=== PATIENT | female | born 1945 | race Hispanic/Latino ===

== ENCOUNTER 2016-12-10 16:24 | Emergency (ER) | payer OTHER ==
[2016-12-10 17:23] LABS: BASO # 0.1 K/uL (0.0-0.2); EOS # 0.1 K/uL (0.0-0.7); EOS % 1.3 % (0.0-4.0); HEMATOCRIT 42.7 % (34.0-47.0); LYMPH # 2.2 K/uL (1.0-4.3); LYMPH % 25.4 % (20.0-40.0); MEAN CELL VOLUME 84.9 fL (81.0-99.0); MEAN CORPUSCULAR HEMOGLOBIN 29.2 pg (27.0-31.0); MEAN CORPUSCULAR HGB CONC 34.4 g/dL (33.0-37.0); MEAN PLATELET VOLUME 7.9 fL (7.2-11.7); MONO # 0.7 K/uL (0.0-0.8); MONO % 8.5 % (0.0-10.0); NRBC % 0.1 % (0.0-2.0); RED CELL DISTRIBUTION WIDTH 13.5 % (11.5-14.5); WHITE BLOOD COUNT 8.6 K/uL (4.8-10.8)
[2016-12-10 17:28] LABS: CHLORIDE 90 mmol/L (98-107); POTASSIUM 3.7 mmol/L (3.6-5.2); RBC URINE 6 /hpf (0-3); SODIUM 132 mmol/L (132-148); URINE BACTERIA RARE (<OCC); URINE BILIRUBIN NEGATIVE (NEGATIVE); URINE BLOOD 1+ (NEGATIVE); URINE COLOR Yellow (YELLOW); URINE GLUCOSE (UA) NORMAL (Normal); URINE KETONE NEGATIVE (NEGATIVE); URINE LEUKOCYTE ESTERASE 1+ Leu/uL (Negative); URINE PROTEIN NEGATIVE (NEGATIVE); URINE UROBILINOGEN NORMAL mg/dL (0.2-1.0); WBC URINE 13 /hpf (0-5)
[2016-12-10 17:30] LABS: BILIRUBIN,TOTAL 0.8 mg/dL (0.2-1.3); CARBON DIOXIDE 26 mmol/L (22-30); GFR AFRICAN-AMERICAN > 60
[2016-12-10 17:31] LABS: ALB/GLOB RATIO 1.7 (1.0-2.1); ALCOHOL SERUM < 10 mg/dl (0-10); ALKALINE PHOSPHATASE 57 U/L (38-126); ALT/SGPT 30 U/L (9-52); AST/SGOT 26 U/L (14-36); BLOOD UREA NITROGEN 11 mg/dL (7-17); CALCIUM 10.3 mg/dl (8.6-10.4); GLUCOSE,RANDOM 137 mg/dL (65-105); TOTAL PROTEIN 8.6 g/dL (6.3-8.3)
--- NOTE | 2016-12-10 17:57 | RAD ---
PROCEDURE: CHEST RADIOGRAPH, 1 VIEW HISTORY: BASELINE COMPARISON: None available. FINDINGS: LUNGS: Diffuse chronic increased interstitial markings. Biapical pleural thickening with upper lobe granulomatous changes. Curvilinear opacity projecting over the lateral right upper lung zone which may represent Mach artifact. PLEURA: As above. CARDIOVASCULAR: Normal. OSSEOUS STRUCTURES: Calcific tendinopathy of the right proximal humerus. Lobulated sclerotic lesion projecting over the proximal medullary cavity of the right humerus. VISUALIZED UPPER ABDOMEN: Normal. OTHER FINDINGS: None. IMPRESSION: Curvilinear opacity projecting at the lateral aspect of the right upper lung zone which may represent Mach artifact. Correlation with PA and lateral view may be helpful to exclude subtle pneumothorax. Calcific tendinopathy of the right proximal humerus. Lobulated sclerotic lesion/density projecting over the right proximal humerus. Chronic interstitial lung markings.
--- NOTE | 2016-12-10 18:38 | C.PDOC ---
Time Seen by Provider: 12/10/16 16:38 Chief Complaint (Nursing): Psychiatric Evaluation History Per: Patient Onset/Duration Of Symptoms: Days Current Symptoms Are (Timing): Still Present Suicide/Self Injury Attempted (Context): None Modifying Factor(s): None Severity: Moderate Associated Symptoms: Anxiety, Paranoia Additional History Per: Prior Records Past Medical History Reviewed: Historical Data, Nursing Documentation, Vital Signs Vital Signs: Last Vital Signs Temp 97.8 F 12/10/16 21:15 Pulse 82 12/10/16 21:15 Resp 22 12/10/16 21:15 BP 149/74 12/10/16 21:15 Pulse Ox 97 12/10/16 23:41 - Medical History PMH: Dementia, Depression, Diabetes, HTN, Hypercholesterolemia - [facility] Procedures TETANUS TOXOID ADMINIST (02/22/13) Family History: States: Unknown Family Hx - Social History Hx Tobacco Use: Yes Hx Alcohol Use: No Hx Substance Use: No - Immunization History Hx Tetanus Toxoid Vaccination: Yes (02/22/2013) Hx Influenza Vaccination: Yes Hx Pneumococcal Vaccination: Yes Review Of Systems Except As Marked, All Systems Reviewed And Found Negative. Constitutional: Negative for: Fever, Weakness Cardiovascular: Negative for: Chest Pain Respiratory: Negative for: Shortness of Breath Gastrointestinal: Negative for: Vomiting, Abdominal Pain Musculoskeletal: Negative for: Neck Pain Neurological: Negative for: Weakness, Numbness, Seizures, Altered Mental Status Psych: Positive for: Psychosis. Negative for: Suicidal ideation Physical Exam - Physical Exam Appears: Non-toxic, No Acute Distress Skin: Normal Color, Warm, Dry, No Rash Head: Atraumatic, Normacephalic Eye(s): bilateral: PERRL, EOMI Neck: Normal ROM, Supple Cardiovascular: Rhythm Regular Respiratory: Normal Breath Sounds, No Accessory Muscle Use Gastrointestinal/Abdominal: Soft, No Tenderness Back: No CVA Tenderness Extremity: Normal ROM Neurological/Psych: Oriented x3, Normal Motor, Normal Sensation ED Course And Treatment - Laboratory Results Result Diagrams: 12/10/16 17:17 12/10/16 17:17 Lab Interpretation: No Acute Changes ECG: Interpreted By Me, Viewed By Me ECG Rhythm: Sinus Rhythm, Nonspecific Changes ECG Interpretation: No Acute Changes Rate From EC O2 Sat by Pulse Oximetry: 97 Pulse Ox Interpretation: Normal - Radiology CXR: Interpreted by Me, Viewed By Me CXR Interpretation: Yes: No Acute Disease Progress Note: Patient is medically stable for psychiatric admission. Pt will be transferred to [facility] for admission to geriatric psych. Accepted by Dr. Dejesus. Reassessment Condition: Improved Disposition Counseled Patient/Family Regarding: Studies Performed, Diagnosis - Disposition Disposition: Trans to Other Acute Care Hosp Disposition Time: 23:40 Condition: STABLE - Clinical Impression Clinical Impression: Anxiety, Psychosis
[2016-12-11 00:44] VITALS: BP 143/71; PULSE 75; RESP 19; TEMP 98.1; O2SAT 96
--- NOTE | 2016-12-11 08:02 | RAD ---
HISTORY: Psych clearance, abnormal portable cxr COMPARISON: 12/10/2016 TECHNIQUE: Chest PA and lateral FINDINGS: LUNGS: Biapical pleural thickening with upper lobe granulomatous changes. Diffuse chronic increased interstitial lung markings. Bibasilar breast and nipple shadows. PLEURA: No significant pleural effusion identified. No pneumothorax apparent. CARDIOVASCULAR: Normal. OSSEOUS STRUCTURES: Degenerative changes in the spine. VISUALIZED UPPER ABDOMEN: Normal. OTHER FINDINGS: None. IMPRESSION: Biapical pleural thickening with upper lobe granulomatous changes. Diffuse chronic increased interstitial lung markings. Bibasilar breast and nipple shadows.
--- NOTE | 2016-12-12 11:36 | CARD ---
APPROVED REPORT EKG Measurement Heart [id number] MA [id number] <Conclusion> Normal sinus rhythm Nonspecific ST abnormality Abnormal ECG
== END 2016-12-11 01:40 | disposition short-term general hospital (02) ==
LOC: C.ER 16:24
DX: F41.9 Anxiety disorder, unspecified (principal); F29 Unspecified psychosis not due to a substance or known physiological condition

== ENCOUNTER 2018-03-12 17:15 | Emergency (ER) | payer MEDICARE ==
[2018-03-12 17:15] VITALS: BMI 25.6
[2018-03-12 17:23] VITALS: RESP 18
--- NOTE | 2018-03-12 18:09 | C.PDOC ---
History Of Present Illness 72 y/o female presents to the ED complaining of discomfort and cold sensation throughout her upper back for the past 2-3 days. Otherwise she denies any cough , chest pain, SOB, congestion, fever, chills, nausea, vomiting, or diarrhea. No fall or trauma. No recent travel. Patient also reports her feet feel cold. Time Seen by Provider: 03/12/18 17:31 Chief Complaint (Nursing): Cough, Cold, Congestion History Per: Patient History/Exam Limitations: no limitations Onset/Duration Of Symptoms: Days Current Symptoms Are (Timing): Still Present Past Medical History Reviewed: Historical Data, Nursing Documentation, Vital Signs Vital Signs: Last Vital Signs Temp 98.7 F 03/12/18 18:54 Pulse 76 03/12/18 18:54 Resp 18 03/12/18 18:54 BP 146/80 03/12/18 18:54 Pulse Ox 100 03/12/18 18:54 - Medical History PMH: Alzheimer's Disease, Dementia, Depression, HTN, Hypercholesterolemia, Schizophrenia Denies: Diabetes, Hepatitis, HIV, Chronic Kidney Disease, Seizures, Sexually Transmitted Disease - [facility] Procedures GROUP PSYCHOTHERAPY (06/20/17) INDIVIDUAL PSYCHOTHERAPY, BEHAVIORAL (02/09/17) INDIVIDUAL PSYCHOTHERAPY, SUPPORTIVE (06/20/17) INTRODUCTION OF SERUM/TOX/VACCINE INTO MUSCLE, PERC APPROACH (06/20/17) MEDICATION MANAGEMENT (06/20/17) TETANUS TOXOID ADMINIST (02/22/13) Family History: States: Unknown Family Hx - Social History Hx Tobacco Use: Yes Hx Alcohol Use: No Hx Substance Use: No - Immunization History Hx Tetanus Toxoid Vaccination: Yes (02/22/2013) Hx Influenza Vaccination: Yes Hx Pneumococcal Vaccination: Yes Review Of Systems Except As Marked, All Systems Reviewed And Found Negative. Constitutional: Negative for: Fever, Chills ENT: Negative for: Nose Discharge, Nose Congestion Cardiovascular: Negative for: Chest Pain Respiratory: Negative for: Cough, Shortness of Breath Gastrointestinal: Negative for: Nausea, Vomiting, Diarrhea Musculoskeletal: Positive for: Back Pain, Other (discomfort and "cold" throughout body) Physical Exam - Physical Exam Appears: Non-toxic, No Acute Distress Skin: Normal Color, Warm, No Rash, No Cyanotic Head: Atraumatic, Normacephalic Eye(s): bilateral: Normal Inspection Ear(s): Bilateral: Normal Oral Mucosa: Moist Throat: Normal, No Erythema, No Exudate Neck: Normal ROM, Supple Chest: Symmetrical Cardiovascular: Rhythm Regular, No Murmur Respiratory: Normal Breath Sounds, No Accessory Muscle Use, No Rhonchi, No Wheezing Back: Normal Inspection, No Vertebral Tenderness, No Decreased ROM Extremity: Bilateral: Atraumatic, Normal Color And Temperature, Normal ROM Pulses: Left Radial: Normal, Right Radial: Normal Neurological/Psych: Oriented x3, Normal Speech ED Course And Treatment O2 Sat by Pulse Oximetry: 96 (RA) Pulse Ox Interpretation: Normal - Radiology CXR: Interpreted by Me, Viewed By Me CXR Interpretation: Yes: No Acute Disease Medical Decision Making Medical Decision Making: Time: 17:57 Plan: * Chest X-Ray The patient has a normal physical exam and normal vitals. CXR is negative. Results were discussed with the patient. Disposition Counseled Patient/Family Regarding: Studies Performed, Diagnosis, Need For Followup - Disposition Referrals: Ignacio Rivera MD [Staff Provider] - Disposition: HOME/ ROUTINE Disposition Time: 18:40 Condition: STABLE Additional Instructions: Follow up with the medical doctor/clinic within 1-2 days without fail. Return if worsened. Prescriptions: Acetaminophen [Tylenol] 325 mg PO Q6 PRN #30 tab PRN Reason: Pain, Mild (1-3) Ibuprofen [Motrin] 1 tab PO TID PRN #30 tab PRN Reason: Pain Loratadine [Claritin] 10 mg PO DAILY #10 tab Instructions: Upper Respiratory Infection (ED) Forms: [facility] (Finnish) - Clinical Impression Clinical Impression: Normal exam - PA / FELLM[employer] WORKER / Resident Statement MD/DO has reviewed & agrees with the documentation as recorded. - Scribe Statement The provider has reviewed the documentation as recorded by the Scribe (Francine Watson) All medical record entries made by the Scribe were at my direction and personally dictated by me. I have reviewed the chart and agree that the record accurately reflects my personal performance of the history, physical exam, medical decision making, and the department course for this patient. I have also personally directed, reviewed, and agree with the discharge instructions and disposition.
--- NOTE | 2018-03-12 18:27 | RAD ---
HISTORY: cough, cold COMPARISON: Chest radiograph dated 12/10/2016. TECHNIQUE: Chest PA and lateral FINDINGS: LUNGS: No active pulmonary disease. PLEURA: No significant pleural effusion identified. No pneumothorax apparent. CARDIOVASCULAR: Atherosclerotic aortic calcifications. Cardiomediastinal silhouette within normal limits. OSSEOUS STRUCTURES: Unchanged. VISUALIZED UPPER ABDOMEN: Normal. OTHER FINDINGS: None. IMPRESSION: No active disease.
[2018-03-12 19:01] VITALS: BP 146/80; PULSE 76; TEMP 98.7
[2018-03-12 22:46] VITALS: O2SAT 96
== END 2018-03-12 18:54 | disposition home or self-care (01) ==
LOC: C.ER 17:15
DX: Z04.8 Encounter for examination and observation for other specified reasons (principal); I10 Essential (primary) hypertension; F17.210 Nicotine dependence, cigarettes, uncomplicated

== ENCOUNTER 2018-03-27 10:12 | Emergency (ER) | payer MEDICARE ==
[2018-03-27 10:12] VITALS: BMI 25.6
[2018-03-27] MEDS ORDERED: Naproxen 550 mg Tab PO STA (10:46)
[2018-03-27] MEDS ORDERED: Naproxen 550 mg Tab PO ONE (10:58)
--- NOTE | 2018-03-27 11:03 | C.PDOC ---
History Of Present Illness 72-year-old female, PMHx includes Alzheimer's Dementia, Depression, HTN, Hypercholesterolemia, Schizophrenia, presents to the emergency department with complaints of "congestion in chest", which is making it difficult to sleep (2-3 days). She is c/o a non-productive cough for the past two days. She denies fever, chest pain, shortness of breath, falls/injuries, rash. Patient has not been seen by her PMD Dr. Rivera for current symptoms. Time Seen by Provider: 03/27/18 10:41 Chief Complaint (Nursing): Cough, Cold, Congestion History Per: Patient History/Exam Limitations: no limitations Current Symptoms Are (Timing): Still Present Severity: Mild Past Medical History Reviewed: Historical Data, Nursing Documentation, Vital Signs Vital Signs: Last Vital Signs Temp 99.0 F 03/27/18 11:31 Pulse 72 03/27/18 11:31 Resp 16 03/27/18 11:31 BP 151/77 H 03/27/18 11:31 Pulse Ox 96 03/27/18 14:55 - Medical History PMH: Alzheimer's Disease, Dementia, Depression, HTN, Hypercholesterolemia, Schizophrenia - [facility] Procedures GROUP PSYCHOTHERAPY (06/20/17) INDIVIDUAL PSYCHOTHERAPY, BEHAVIORAL (02/09/17) INDIVIDUAL PSYCHOTHERAPY, SUPPORTIVE (06/20/17) INTRODUCTION OF SERUM/TOX/VACCINE INTO MUSCLE, PERC APPROACH (06/20/17) MEDICATION MANAGEMENT (06/20/17) TETANUS TOXOID ADMINIST (02/22/13) Family History: States: Unknown Family Hx - Social History Hx Tobacco Use: Yes Hx Alcohol Use: No Hx Substance Use: No - Immunization History Hx Tetanus Toxoid Vaccination: Yes (02/22/2013) Hx Influenza Vaccination: Yes Hx Pneumococcal Vaccination: Yes Review Of Systems Constitutional: Negative for: Fever, Chills ENT: Negative for: Nose Congestion, Throat Pain Cardiovascular: Negative for: Chest Pain, Palpitations Respiratory: Positive for: Cough. Negative for: Shortness of Breath, Sputum, Wheezing Gastrointestinal: Negative for: Nausea, Vomiting, Abdominal Pain Musculoskeletal: Negative for: Back Pain Skin: Negative for: Rash Neurological: Negative for: Weakness, Numbness, Headache, Dizziness Physical Exam - Physical Exam Appears: Well, Non-toxic, No Acute Distress, Other (Speaking full sentences, bizarre affect ) Skin: Normal Color, Warm, Dry, No Rash Head: Normacephalic Eye(s): bilateral: Normal Inspection Oral Mucosa: Moist Neck: Normal, Normal ROM, No Midline Cervical Tenderness, No Paracervical Tenderness, No Step Off Deformity, Supple Chest: Symmetrical, No Tenderness Cardiovascular: Rhythm Regular Respiratory: Normal Breath Sounds, No Accessory Muscle Use, No Rales, No Rhonchi , No Stridor Gastrointestinal/Abdominal: Normal Exam, Bowel Sounds, Soft, No Tenderness Back: Normal Inspection, No CVA Tenderness, No Vertebral Tenderness, No Paraspinal Tenderness Extremity: Normal ROM, No Pedal Edema, No Calf Tenderness Neurological/Psych: Oriented x3 Gait: Steady ED Course And Treatment O2 Sat by Pulse Oximetry: 96 (RA) Pulse Ox Interpretation: Normal Progress Note: CXR ordered and reviewed, negative for infiltrates. Patient reassurred her symptoms are likely viral, and that treatment is supportive. She was given PO Naprosyn in the ED, and Rxs for Tessalon and Naprosyn. Patient instructed to follow up with PD in 1-2 days, and understands she should return to ED if symptoms worsen. Reevaluation Time: 11:00 Reassessment Condition: Improved Disposition Counseled Patient/Family Regarding: Diagnosis, Need For Followup, Rx Given - Disposition Referrals: Ignacio Rivera MD [Staff Provider] - Disposition: HOME/ ROUTINE Disposition Time: 11:00 Condition: STABLE Additional Instructions: FOLLOW UP WITH YOUR DOCTOR IN 1-2 DAYS USE MEDICATIONS FOR PAIN, COUGH NEEDED RETURN TO ER IF SYMPTOMS WORSEN Prescriptions: Benzonatate [Tessalon Perles] 100 mg PO BID PRN #15 sgl PRN Reason: Cough Naproxen 375 mg PO BID PRN #20 tablet PRN Reason: pain Instructions: Viral Upper Respiratory Infection, Adult (DC) Forms: [employer] (Surinamese) Print Language: SPANISH - Clinical Impression Clinical Impression: Viral upper respiratory illness - Scribe Statement The provider has reviewed the documentation as recorded by the Scribe (Richard Cotto) All medical record entries made by the Scribe were at my direction and personally dictated by me. I have reviewed the chart and agree that the record accurately reflects my personal performance of the history, physical exam, medical decision making, and the department course for this patient. I have also personally directed, reviewed, and agree with the discharge instructions and disposition.
--- NOTE | 2018-03-27 11:20 | RAD ---
Date of service: 03/27/2018 HISTORY: upper back pain COMPARISON: 03/12/2018 and 12/10/2016 TECHNIQUE: Chest PA and lateral FINDINGS: LUNGS: No interval consolidation. Diffuse interstitial marking prominence- similar with prior studies dating back to 2017 Symmetrical 4 to 5 mm rounded faint nodular opacities over both lung base although not appreciated such on prior study-nipple shadows are a consideration. Nipple markers with the repeat PA and bilateral oblique views can be obtained to confirm PLEURA: No significant pleural effusion identified. No pneumothorax apparent. CARDIOVASCULAR: Normal. OSSEOUS STRUCTURES: Thoracic spondylosis. Mild generalized osteopenia. VISUALIZED UPPER ABDOMEN: Normal. OTHER FINDINGS: None. IMPRESSION: Osteopenia and mild thoracic spondylosis. No interval compression fracture appreciated. Probable bilateral nipple shadows-as referenced above. No interval consolidation.
[2018-03-27 11:32] VITALS: BP 151/77; PULSE 72; RESP 16; TEMP 99
[2018-03-27 14:52] VITALS: O2SAT 96
== END 2018-03-27 11:32 | disposition home or self-care (01) ==
LOC: C.ER 10:12
DX: J06.9 Acute upper respiratory infection, unspecified (principal)